=== PATIENT | female | born 1980 | race Caucasian/White ===

== ENCOUNTER 2016-12-31 19:06 | Emergency (ER) | payer OTHER ==
[2016-12-31 19:10] VITALS: BP 130/84; PULSE 98; RESP 18; TEMP 98.6
[2016-12-31] MEDS ORDERED: HYDROcodone/APAP 5-325MG 1 EACH TAB PO STA (19:23)
--- NOTE | 2016-12-31 19:28 | ED ---
ENT HPI - General Chief complaint: Dental/Oral Stated complaint: tooth pain Time Seen by Provider: 12/31/16 19:16 Source: patient Mode of arrival: ambulatory Limitations: no limitations - History of Present Illness Initial comments: 36-year-old female patient presented to emergency department today for complaints of left lower dental pain. Patient states that she broke her tooth a week ago. She states that she started to have pain in the tooth 2 days ago. She states that the pain is severe. She did call her dentist and has an appointment on the seventh. She denies any difficulty opening her mouth Patient denies any recent fever, chills, shortness breath, chest pain, abdominal pain, nausea, vomiting, diarrhea, constipation, back pain, numbness, tingling, headache, visual changes, hematuria, dysuria, urinary frequency, urinary urgency, or any other complaints. Patient denies any recent fever, chills, shortness breath, chest pain, abdominal pain, nausea, vomiting, diarrhea , constipation, back pain, numbness, tingling, headache, visual changes, hematuria, dysuria, urinary frequency, urinary urgency, or any other complaints. - Related Data Previous Rx's Medication Instructions Recorded Hydrocodone/Acetaminophen [Corona 1 tab PO Q6HR PRN #15 tab 12/31/16 5-325] Penicillin V Potassium [Pen Vee K] 500 mg PO QID #40 tab 12/31/16 Allergies Allergy/AdvReac Type Severity Reaction Status Date / Time gemfibrozil [From Lopid] Allergy Swelling Verified 12/31/16 19:24 sulfamethoxazole Allergy Swelling Verified 12/31/16 19:24 [From Bactrim] trimethoprim [From Bactrim] Allergy Swelling Verified 12/31/16 19:24 tramadol AdvReac Nausea & Verified 12/31/16 19:24 Vomiting Review of Systems ROS Statement: Those systems with pertinent positive or pertinent negative responses have been documented in the HPI. ROS Other: All systems not noted in ROS Statement are negative. Past Medical History Past Medical History: No Reported History History of Any Multi-Drug Resistant Organisms: None Reported Past Surgical History: Tubal Ligation Past Psychological History: No Psychological Hx Reported Smoking Status: Never smoker Past Alcohol Use History: None Reported Past Drug Use History: None Reported General Exam Limitations: no limitations General appearance: alert, in no apparent distress Head exam: Present: atraumatic, normocephalic, normal inspection ENT exam: Present: normal exam, normal oropharynx, mucous membranes moist, other (Left dental fracture tooth #17. Gingiva surrounding is erythematous however there is no area of drainable abscess.) Neck exam: Present: normal inspection. Absent: tenderness, meningismus, lymphadenopathy Respiratory exam: Present: normal lung sounds bilaterally. Absent: respiratory distress, wheezes, rales, rhonchi, stridor Cardiovascular Exam: Present: regular rate, normal rhythm, normal heart sounds. Absent: systolic murmur, diastolic murmur, rubs, gallop, clicks Neurological exam: Present: alert, oriented X3, CN II-XII intact Psychiatric exam: Present: normal affect, normal mood Skin exam: Present: warm, dry, intact, normal color. Absent: rash Course Vital Signs 12/31/16 19:08 Temperature 98.6 F Pulse Rate 98 Respiratory 18 Rate Blood Pressure 130/84 O2 Sat by Pulse 99 Oximetry Medical Decision Making - Medical Decision Making 36-year-old female patient percent to emergency department today for evaluation of left lower dental pain. Patient did have a fracture to tooth #17. Did offer patient a dental block however she states that she is very difficult to numb up even at the dentist, and refuses at this time. Patient will be given a prescription for penicillin as well as up her prescription for pain medication. She states she does have an appointment with the dentist on 01/03/2017, she is strongly advised to keep this appointment. Patient instructed to follow-up with her primary care physician for recheck in 1-2 days. Instructed to return here immediately for any new, worsening, or concerning symptoms. Patient verbalizes understanding and agrees this plan. Disposition Clinical Impression: Fractured tooth, Pain, dental Disposition: HOME SELF-CARE Condition: Good Instructions: Toothache (ED) Additional Instructions: Apply warm compresses to the outside of the face. Take medications as directed. Keep your appointment with the dentist. Follow up with primary care physician for recheck in 1-2 days. Return immediately for any new, worsening, or concerning symptoms. Prescriptions: Hydrocodone/Acetaminophen [Corona 5-325] 1 tab PO Q6HR PRN #15 tab PRN Reason: Pain Penicillin V Potassium [Pen Vee K] 500 mg PO QID #40 tab Referrals: None,Stated [Primary Care Provider] - 1-2 days Time of Disposition: 19:26
== END 2016-12-31 19:34 | disposition home or self-care (01) ==
LOC: EC 19:06
DX: S02.5XXA Fracture of tooth (traumatic), initial encounter for closed fracture (principal); Z88.2 Allergy status to sulfonamides; Z88.6 Allergy status to analgesic agent; Z88.8 Allergy status to other drugs, medicaments and biological substances
CPT/HCPCS: 99282